=== PATIENT | female | born 1970 | race Two or more races ===

== ENCOUNTER 2024-11-18 18:07 | Emergency (ER) | payer MEDICAID, SELFPAY ==
[2024-11-18 18:17] VITALS: BP 107/67; PULSE 64; RESP 16; TEMP 36.8; O2SAT 95; BMI 30.2
--- NOTE | 2024-11-18 18:27 | XR_ITS ---
Examination: PA chest single view Technique: Upright PA chest single view Exam date and time: November 18, 2024 1836 hrs. Indications: Chest pain epigastric pain today. Findings: Normal heart size Mild increased opacity right base medially No pulmonary edema Impression: Suspicious for early pneumonia right base medially, clinical correlation advised
--- NOTE | 2024-11-18 18:27 | EKG_ITS ---
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
--- NOTE | 2024-11-18 18:27 | PD.EDRME ---
Rapid Medical Screening Exam [facility] Arrival date/time: 11/18/24 18:07 54F with no significant PMH presents to ED with 30 min of lower chest/epigastric pain and N/V. Patient denies diarrhea, dsysuria, and URI symptoms. Chief Complaint: Abdominal Pain Vital signs: Vital Signs Temperature 98.2 F 11/18/24 18:17 Pulse Rate 64 11/18/24 18:17 Respiratory Rate 16 11/18/24 18:17 Blood Pressure 107/67 11/18/24 18:17 Pulse Oximetry (%) 95 11/18/24 18:17 Oxygen Delivery Method Room Air 11/18/24 18:17
[2024-11-18 18:59] LABS: Basophils # (Auto) 0.1 Thou/mm3 (0.0-0.2); Basophils % (Auto) 1 % (0-2.5); Eosinophils # (Auto) 0.2 Thou/mm3 (0.0-0.5); Eosinophils % (Auto) 3 % (0-10); Hematocrit 44.4 % (36.0-46.0); Hemoglobin 15.1 g/dL (12.0-16.0); Immature Granulocytes % (Auto) 0 % (0-0); Immature Granulocytes Auto 0.02 Thou/mm3 (0.00-0.00); Lymphocytes % (Auto) 53 % (10-50); Mean Corpuscular Hemoglobin 30.8 pg (25.0-35.0); Mean Corpuscular Volume 91 fL (80-100); Monocytes # (Auto) 0.3 Thou/mm3 (0.0-0.8); Monocytes % (Auto) 4 % (0-12); Neutrophils % (Auto) 39 % (37-80); Nucleated Red Blood Cell % 0 /100 WBC (0); Platelet Count 273 Thou/mm3 (140-440); RDW Standard Deviation 41.7 fL (36.4-46.3); White Blood Count 7.7 Thou/mm3 (3.6-11.0)
[2024-11-18 19:17] LABS: Alanine Aminotransferase 17 U/L (10-49); Albumin, Serum 4.4 gm/dL (3.5-5.0); Albumin/Globulin Ratio 1.6 (1.2-2.2); Alkaline Phosphatase 80 U/L (46-116); Anion Gap 3 (7-16); Aspartate Amino Transferase 22 U/L (0-34); BUN/Creatinine Ratio 25 Ratio (12-20); Bilirubin,Total 0.4 mg/dL (0.3-1.2); Blood Urea Nitrogen 20 mg/dL (9-23); Calcium 9.5 mg/dL (8.3-10.6); Calcium (Corrected) 9.5 mg/dL (8.5-10.1); Carbon Dioxide 31.2 mMol/L (20.0-31.0); Chloride 108 mMol/L (98-107); Creatinine (Component) 0.8 mg/dL (0.6-1.3); Estimated Creatinine Clearance 80.3 mL/min (>60); Globulin 2.8 gm/dL (2.3-3.5); Glucose 156 mg/dL (74-106); Lipase 54 U/L (12-53); Osmolality,Calculated 288 (275-295); Potassium 4.1 mMol/L (3.4-5.1); Sodium 142 mMol/L (136-145); Total Protein 7.2 gm/dL (5.7-8.2); Troponin I < 0.002 ng/mL (0.0-0.045); eGFR > 60 See Note
[2024-11-18 19:20] LABS: Collection Type, Urine Clean Catch; RBC,Urine 0 /hpf (0-3)
[2024-11-18 19:32] LABS: Bacteria,Urine 1+; Bilirubin,Urine Negative (Negative); Blood,Urine Negative (Negative); Clarity,Urine Clear (Clear/Hazy); Color,Urine Yellow (Lt Yel-Yel); Glucose, Urine Negative (Negative); Hyaline Casts,Urine < 1 /hpf (0-1); Ketones,Urine Trace (Negative); Leukocyte Esterase,Urine Positive (Negative); Nitrite,Urine Negative (Negative); PH,Urine 6.5 (5.0-7.0); Protein,Urine 1+ (Neg - Trace); Specific Gravity,Urine 1.036 (1.001-1.035); Squamous Epithelial Cell,Urine 14 /hpf (0-5); WBC,Urine 4 /hpf (0-5)
[2024-11-18 19:40] LABS: Amphetamine/Methamp Scrn,U Negative (Negative); Barbiturate Screen,Urine Negative (Negative); Benzodiazepines Screen,Urine Negative (Negative); Benzoylecgonine Screen, Ur Negative (Negative); Fentanyl Screen,Urine Negative (Negative); Opiate Screen,Urine Negative (Negative); THC Screen,Urine Negative (Negative)
[2024-11-18] MEDS: ONDANSETRON ODT 4 MG TABRAP PO (19:45)
[2024-11-18] MEDS: FAMOTIDINE 20 MG TABLET 40 MG PO (19:46)
[2024-11-18] MEDS: MG HYD/AL HYD/SIME (Maalox Reg) SUSP 30 ML UDC PO (19:46)
[2024-11-18 20:03] VITALS: BP 106/74; PULSE 82; RESP 18; TEMP 36.6; O2SAT 99
--- NOTE | 2024-11-18 20:15 | XR_ITS ---
Examination: Abdomen sonogram, Limited Date and time of exam: November 18, 2024 at 2027 hrs. Indications: Epigastric pain nausea vomiting beginning 5 hours ago Technique: Real-time maugire scale transabdominal sonographic images of the upper abdomen obtained. Findings: 19 mm gallstone Gallbladder wall 0.3 cm no edema Common bile duct 0.5 cm Pancreatic head 2.9 cm Liver 16.1 cm no liver lesions Normal hepatopedal portal venous flow Patent IVC Impression: Cholelithiasis, negative for cholecystitis
--- NOTE | 2024-11-18 20:16 | EDNOTE_ITS ---
ED Abdominal Pain RME/HPI General Chief Complaint: Abdominal Pain Stated complaint: EPIGASTRIC PAIN, N/V Time seen by provider: 11/18/24 19:16 Arrival date/time: 11/18/24 18:07 RME / HPI RME / HPI narrative: 54-year-old female patient with no significant past medical history, came in for evaluation regarding epigastric pain. Onset of symptoms earlier today as epigastric pain sudden onset, described as crampy, severity moderate associated with nausea and vomiting. Nonbloody. Patient also complained of on and off same pain that lasted for several minutes. Denies any diarrhea fever dysuria or other complaints. No medication was taken prior travel Related Data Home Medications ?Medication ?Instructions ?Recorded ?Confirmed cephalexin 500 mg capsule 500 mg PO QDAY 12/17/1912/05 metformin 500 mg tablet 500 mg PO BID 12/17/1912/17 Previous Rx's ?Medication ?Instructions ?Recorded dicyclomine 20 mg tablet 20 mg PO TID #30 tabs ibuprofen 800 mg tablet 800 mg PO TID PRN pain #30 t abs 11/18/24 Allergies Allergy/AdvReac Type Severity Reaction Status Date / Time No Known Allergies Allergy Verified 12/18/19 12:51 Review of Systems Review of Systems Narrative Review of Systems: Review of system reviewed and within normal limits except mentioned in HPI ED Exam Narrative Physical exam: VITAL SIGNS: Reviewed. GENERAL APPEARANCE: Alert and interactive, follows commands, no acute distress, HEAD AND FACE: Non-traumatic. ENT: PERRL, pink conjunctivitis, eyelid no trauma, Mucous membrane moist. NECK: Supple, nontender, no nuchal rigidity. CHEST: No tenderness, no crepitus, no paradoxical movement, no retractions. LUNGS: Clear, well ventilated, symmetric, no rales, no wheezing, no ronchi, no stridor, good breath sounds bilaterally. HEART: Regular rate, regular rhythm, no murmur, no gallops. ABDOMEN: Soft, positive bowel sounds, nondistended, no guarding, epigastric tenderness, no rebound, no masses, RECTAL: Deferred. GENITAL: Deferred. NEUROLOGICAL: Gross motor function intact sensory function intact, Appropriate for age. MUSCULOSKELETAL: low back nontender, full range of motion. EXTREMITIES: Nontender, full range of motion. SKIN: Color pink, dry, no rash, no lacerations, no abrasions, no contusions. LYMPHATICS: Deferred. Course Quality Measures none Orders Category Date Time Status EKG (ED ONLY) *Do not use* NOW Care 11/18/24 18:27 Completed EKG (ED Only) Stat Exams 11/18/24 18:27 Draft US gall bladder Stat Exams 11/18/24 20:15 Completed XR chest 1V portable Stat Exams 11/18/24 18:27 Completed CBC Stat Lab 11/18/24 18:44 Completed Comprehensive Metabolic Panel Stat Lab 11/18/24 18:44 Completed Drug Screen,Urine Stat Lab 11/18/24 19:03 Completed Lipase Stat Lab 11/18/24 18:44 Completed Troponin I Stat Lab 11/18/24 18:44 Completed Urinalysis Stat Lab 11/18/24 19:03 Completed Famotidine [Pepcid] Med 11/18/24 18:42 Discontinued 40 mg PO X1 ONE Ketorolac Inj [Toradol Inj] Med 11/18/24 20:15 Discontinued 30 mg IM X1 ONE Ondansetron Odt [Zofran Odt] Med 11/18/24 18:27 Discontinued 4 mg PO X1 ONE mg Hyd/Al Hyd/Isa Susp [Maalox Susp] Med 11/18/24 18:42 Discontinued 30 ml PO X1 ONE Vital Signs Vital signs: Vital Signs Temperature 98.2 F 11/18/24 18:17 Pulse Rate 64 11/18/24 18:17 Respiratory Rate 16 11/18/24 18:17 Blood Pressure 107/67 11/18/24 18:17 Pulse Oximetry (%) 95 11/18/24 18:17 Oxygen Delivery Method Room Air 11/18/24 18:17 Abdominal Pain MDM MDM Narrative MDM Narrative:: 54-year-old female patient with no significant past medical history, came in for evaluation regarding epigastric pain. Onset of symptoms earlier today as epigastric pain sudden onset, described as crampy, severity moderate associated with nausea and vomiting. Nonbloody. Patient also complained of on and off same pain that lasted for several minutes. Denies any diarrhea fever dysuria or other complaints. No medication was taken prior travel Patient workup all came back unremarkable. Ultrasound of the gallbladder showed cholelithiasis with no sign of acute cholecystitis. Patient received Toradol IM with significant improvement of pain. Patient was advised to follow-up closely with PCP and for referral to general surgeon for definitive management of renal stone. Patient appears nontoxic and hemodynamically stable. Patient discharged home and instructed to follow-up with primary care provider in 24 to 48 hours. Instructed to return to the emergency department immediately if worsening of symptoms Patient data External records reviewed:: Other (specify) Clinical information provided by:: none Social determinants that could affect healthcare access:: none Patient has the following chronic illnesses:: None How is presenting disease/condition affected by chronic disease/condition?: no chronic disease Evaluation data The following diagnostics were reviewed and interpreted by me:: lab results and radiology exam(s) Lab and/or radiology exams considered but not ordered:: None Interpretation Summary: See results in [facility] Medications / Prescriptions Medications or Prescriptions considered but not ordered:: None Medication administrations:: Medication Administration History Discontinued Medications Al Hydrox/Mg Hydrox/Simethicone (Mg Hyd/Al Hyd/Isa (Maalox Reg) Susp 30 Ml Udc) 30 ml PO X1 ONE Stop: 11/18/24 18:43 Last Admin: 11/18/24 19:46 Dose: 30 ml Documented By: CVL Famotidine (Famotidine 20 Mg Tablet) 40 mg PO X1 ONE Stop: 11/18/24 18:43 Last Admin: 11/18/24 19:46 Dose: 40 mg Documented By: CVL Ketorolac Tromethamine (Ketorolac Inj 60 Mg/2 Ml Vial) 30 mg IM X1 ONE Stop: 11/18/24 20:16 Last Admin: 11/18/24 20:54 Dose: 30 mg Documented By: Ondansetron HCl (Ondansetron Odt 4 Mg Tabrap) 4 mg PO X1 ONE; Protocol Stop: 11/18/24 18:28 Last Admin: 11/18/24 19:45 Dose: 4 mg Documented By: CVL Toradol IM, Zofran, Pepcid and Maalox Consultations Consultation(s) initiated? (list below): No Consultation #1 (Physician, Specialty, Details): None Diagnosis Differential diagnosis abdominal pain: abdominal pain, pancreatitis and other (Gallstone) Most likely diagnosis given after review of the tests above:: Gallstone Admission Indicated Admission indicated?: not indicated Explain why admission is indicated or not indicated:: None Admission Request Was there a request for admission?: No Disposition Plan Disposition Plan: Discharge Discharge Attestation Discharge Attestation: The patient and all family members were given an opportunity to ask questions and understood the discharge instructions. Discharge instructions specifically effects, indications for sooner follow up or return to the emergency department, and the expected course of current diagnosis. Patient condition: Stable Discharge Plan Plan Patient Disposition: HOME (Self Care) Disposition Comment: Stable Prescriptions/Referrals Prescriptions/Med Rec: New dicyclomine 20 mg tablet 20 mg PO TID Qty: 30 0RF ibuprofen 800 mg tablet 800 mg PO TID PRN (Reason: pain) Qty: 30 0RF No Action metformin 500 mg Tablet 500 mg PO BID cephalexin 500 mg Capsule 500 mg PO QDAY Referrals: Tian Dutta MD [Primary Care Provider] - In 1 week Problem List Clinical Impression: Gallstone Patient/Caregiver Discharge Instructions Discharge Activity: activity as tolerated Education Materials: What Are Gallstones Additional Instructions: Thank you for the opportunity for serving you today. You are stable for discharged . You are advised to: Follow-up with your PCP in 1 to 2 days as your PCP to refer you to a surgeon Return to ED for worsening of symptoms Increase oral fluids Take medication as prescribed Print Language: Greenlandic Stand Alone Forms: Nancy Award Info., Patient Portal Info Letter PA/RATNA Supervising Physician PRIYANKA/RATNA Supervising Physician: MD Margarita
[2024-11-18] MEDS: KETOROLAC INJ 60 MG/2 ML VIAL 30 MG IM (20:54)
== END 2024-11-18 21:45 | disposition home or self-care (01) ==
PROVIDERS: Physician Assistant; Emergency Provider Emergency Medicine; PCP Family Medicine
DX: K80.20 Calculus of gallbladder without cholecystitis without obstruction (principal)
CPT/HCPCS: 36415; 71045; 76705; 80053; 80307; 81001; 83690; 84484; 85025; 93005; 96372; 99284; J1885; Q0162; A9270

== ENCOUNTER 2024-12-31 07:30 | Day surgery (SDC) | payer MEDICAID, SELFPAY ==
[2024-12-29 09:53] VITALS: BMI 31.1
[2024-12-29 11:11] LABS: Basophils # (Auto) 0.1 Thou/mm3 (0.0-0.2); Basophils % (Auto) 1 % (0-2.5); Eosinophils # (Auto) 0.1 Thou/mm3 (0.0-0.5); Eosinophils % (Auto) 2 % (0-10); Hematocrit 41.8 % (36.0-46.0); Hemoglobin 14.1 g/dL (12.0-16.0); Immature Granulocytes % (Auto) 0 % (0-0); Immature Granulocytes Auto 0.01 Thou/mm3 (0.00-0.00); Lymphocytes # (Auto) 2.4 Thou/mm3 (1.0-4.8); Lymphocytes % (Auto) 45 % (10-50); Mean Corpuscular HGB Conc 33.7 g/dl (31.0-37.0); Mean Corpuscular Hemoglobin 30.7 pg (25.0-35.0); Mean Corpuscular Volume 91 fL (80-100); Monocytes # (Auto) 0.3 Thou/mm3 (0.0-0.8); Monocytes % (Auto) 6 % (0-12); Neutrophils # (Auto) 2.4 Thou/mm3 (1.8-7.7); Neutrophils % (Auto) 46 % (37-80); Nucleated Red Blood Cell % 0 /100 WBC (0); Platelet Count 231 Thou/mm3 (140-440); White Blood Count 5.2 Thou/mm3 (3.6-11.0)
[2024-12-29 11:20] LABS: Alanine Aminotransferase 22 U/L (10-49); Albumin, Serum 4.6 gm/dL (3.5-5.0); Albumin/Globulin Ratio 1.6 (1.2-2.2); Alkaline Phosphatase 71 U/L (46-116); Anion Gap 7 (7-16); Aspartate Amino Transferase 23 U/L (0-34); BUN/Creatinine Ratio 19 Ratio (12-20); Bilirubin,Total 0.6 mg/dL (0.3-1.2); Blood Urea Nitrogen 13 mg/dL (9-23); Calcium 10.3 mg/dL (8.3-10.6); Calcium (Corrected) 10.3 mg/dL (8.5-10.1); Carbon Dioxide 27.9 mMol/L (20.0-31.0); Chloride 106 mMol/L (98-107); Creatinine (Component) 0.7 mg/dL (0.6-1.3); Estimated Creatinine Clearance 89.8 mL/min (>60); Globulin 2.9 gm/dL (2.3-3.5); Glucose 142 mg/dL (74-106); Osmolality,Calculated 283 (275-295); Potassium 4.6 mMol/L (3.4-5.1); Sodium 141 mMol/L (136-145); Total Protein 7.5 gm/dL (5.7-8.2); eGFR > 60 See Note
--- NOTE | 2024-12-30 14:03 | SUR.PREOP ---
Pt notified to come in at 0730 tomorrow for surgery.
[2024-12-31] VITALS (13 sets, daily range): BP systolic 92–136; BP diastolic 60–76; PULSE 45–67; RESP 12–20; TEMP 36.1–36.6; O2SAT 92–100; BMI 32.3
--- NOTE | 2024-12-31 10:06 | ESOP_ITS ---
Date of Procedure 12/31/24 Pre Op Diagnosis Symptomatic cholelithiasis Post Op Diagnosis Cholelithiasis with cholecystitis Procedure Laparoscopic cholecystectomy Findings Moderately distended gallbladder with gallstones and chronic cholecystitis Procedure Description Patient was brought into the operating room in supine position. After adm inistration of general endotracheal anesthesia abdomen was prepped and draped in standard surgical manner. A Veress needle was inserted through the umbilicus and pneumoperitoneum was obtained up to 15 mmHg. The Veress needle was then removed, a 5 mm infraumbilical incision was made and the 5mm trocar was inserted. Laparoscopic camera was placed. Under direct visualization a laparoscopic camera a 10 mm trocar was placed in subxiphoid and two 5 mm trocars placed in right upper quadrant. The gallbladder was identified and was noted to be moderately distended with gallstones and chronic cholecystitis. It was retracted cephalad and laterally. Dissection started near the infundibulum of gallbladder where cystic duct and gallbladder junction clearly identified. The cystic duct was circumferentially dissected off the peritoneum and surrounding inflammatory tissue. The critical view of safety was clearly demonstrated. Cystic duct was then divided between 2 endoclips proximally and one distally. The cystic artery was similarly dissected and divided, patient was noted to have anterior and posterior branches of cystic artery that were individually dissected and divided. The gallbladder was then from the liver bed using electrocautery. The gallbladder was then placed inside an Endo Catch and removed from the abdomen utilizing subxiphoid trocar site. The area was copi ously and thoroughly washed and irrigated, all the fluid was suctioned and the suction fluid returned clear. Hemostasis achieved using electrocautery. Endoclips noted be in place and intact without any bleeding or any leakage. Hemostasis was adequate and satisfactory. The subxiphoid trocar sites fascial defect was closed with 0 Vicryl using Endo Closure device. Instruments and trocars removed, pneumoperitoneum was evacuated and the incisions closed with 4- 0 Monocryl in subcuticular fashion. Instrument needle and sponge counts were all reported to be correct X2. Patient tolerated the procedure well, was extubated, breathing spontaneously and without difficulty and was transferred to postanesthesia care in stable condition. Anesthesia GETA and local Pathology / specimen Other (Gallbladder and contents) Estimated Blood Loss 10 Condition Stable Disposition PACU Surgeon Radha Holden MD Surgical Staff Operation Date: 12/31/24 09:45 Case Staff BAG MACHINE TENDER: Conrad Chisholm RNdirector critical care: Madelyn Lima
[2024-12-31] MEDS: fentaNYL CIT INJ 50 mCg/ML AMP 2ML IV ×2 (10:17→10:26)
--- NOTE | 2024-12-31 10:17 | SUR.PHASEI ---
1017: Pt. AAOx4, vitals stable, breathing unlabored, complaint of pain, no complaint of nausea, x4 dermabond sites to ABD CDI, no active bleed noted, report received from Shaji FALK and CASEY Martines.
--- NOTE | 2024-12-31 12:00 | SUR.PHASEI ---
1200: Kept pt. in phase 1 for so long due to her being super lethargic, bradycardic, and having discomfort. Report given to Isabel FALK to resume care of pt. Dressing to ABD CDI, no active bleed.
--- NOTE | 2024-12-31 12:20 | SUR.PHASEII ---
pt discharged with all belongings via wheelchair.. vss. dermabond remains cdi x4. breathing even and unlabored. pt drinking 7 up, burping and states pain relief from gas. dc instructions gone over wit pt and son. both verbalize understanding. signed by son.
--- NOTE | 2024-12-31 12:20 | SUR.PHASEII ---
report from nurse nargis. pt preparing for discharge. . vss. dermabond cdi x4. breathing even and unlabored. denies pain and nausea. states gas relief from 7 up. pt burping. family called to bedside.
== END 2024-12-31 12:20 | disposition home or self-care (01) ==
PROVIDERS: PCP Family Medicine; Referring Provider Surgery; Visit Provider Surgery
PROC: 0FT44ZZ Resection of Gallbladder, Percutaneous Endoscopic Approach (ICD-10-PCS; CPT 47562; principal; 2024-12-31 10:00)
DX: K80.10 Calculus of gallbladder with chronic cholecystitis without obstruction (principal)
CPT/HCPCS: 47562; 36415; 80053; 84703; 85025; A4217; A4649; J0131; J0694; J1100; J2405; J2704; J3010; J3490

== ENCOUNTER 2025-01-21 15:07 | Emergency (ER) | payer MEDICAID, SELFPAY ==
[2025-01-21 16:04] VITALS: BP 108/70; PULSE 69; RESP 18; TEMP 37.1; O2SAT 99
--- NOTE | 2025-01-21 16:28 | EDNOTE_ITS ---
ED Wound/Laceration-RME/HPI General Chief Complaint: Wound Recheck / Suture Removal Stated Complaint: [id number]/27/25; WHITE SPOTS ON INCISION Time Seen by Provider: 01/21/25 16:12 Source: patient Arrival date/time: 01/21/25 15:07 A 54-year-old female presents to the ED with complaints of irritation and redness at one of her surgical incision sites. She underwent a laparoscopic cholecystectomy two weeks ago. She reports that all other incision sites have healed appropriately; however, the upper mid-abdominal incision has developed a small bump accompanied by mild redness. She denies fever, purulent discharge, or systemic symptoms. Mode of arrival: ambulatory Limitations: no limitations Related Data Previous Rx's ?Medication ?Instructions ?Recorded docusate sodium 100 mg capsule 100 mg PO BID #30 caps 12/31/24 (Colace) hydrocodone 5 mg-acetaminophen 325 1 tab PO Q6H PRN pa in (scale score 12/31/24 mg tablet 7-10) #15 tabs ibuprofen 600 mg tablet 600 mg PO Q8H PRN pain (scal e 12/31/24 score 4-6) #15 tabs mupirocin 2 % topical ointment 1 applic topical BID 7 days #22 01/21/25 grams sulfamethoxazole 800 1 tab PO BID 7 days #14 tabs 01/21/25 mg-trimethoprim 160 mg tablet (Bactrim DS) Allergies Allergy/AdvReac Type Severity Reaction Status Date / Time No Known Allergies Allergy Verified 01/21/25 15:11 Review of Systems Review of Systems Systems Reviewed: All systems reviewed, normal except as documented Narrative Review of Systems: Gen: No fever, no chills, no weight loss EYES: No discharge, no visual changes, no pain HEENT: No ear pain, no congestion, no sore throat PULM: No shortness of breath, no cough, no congestion CV: No chest pain, no dyspnea on exertion, no palpitations GI: No nausea, no vomiting, no diarrhea, no pain, no constipation : No frequency, no urgency,? no dysuria Musc/skel: No joint pain, no back pain Skin: +erythemic, surgical site Psyc: No hallucinations, no depression Heme/Lymph: No easy bleeding or bruising tendencies Neuro: No weakness, no headache ED Exam General Limitations: Present no limitations General appearance: Present alert and in no apparent distress Head Head exam: Present atraumatic Eye Eye exam: Present normal appearance, PERRL and EOMI ENT ENT exam: Present normal exam, normal oropharynx and mucous membranes moist Neck Neck exam: Present normal inspection, full ROM and trachea midline Chest Chest inspection: Present normal inspection and symmetric chest wall rise Respiratory Respiratory exam: Present normal lung sounds bilaterally Cardiovascular Cardiovascular exam: Present regular rate, normal rhythm and normal heart sounds Abdominal Exam Abdominal exam: Present soft, normal bowel sounds and other (Noted 3 surgical healing sites. And abdomen wall. She does have a small 2 cm surgical site in the upper mid abdominal wall that appears to have a seroma and mild erythema. No abscess formation..); Absent distention, tenderness, guarding, rebound or rigidity Extremities Exam Extremities exam: Present normal inspection and full ROM Back Exam Back exam: Present normal inspection and full ROM Neurological Exam Neurological exam: Present alert, oriented X3 and CN II-XII intact Psychiatric Psychiatric exam: Present normal affect and normal mood Skin Skin exam: Present warm, dry, intact and normal color Course Quality Measures none Vital Signs Vital signs: Vital Signs Temperature 98.7 F 01/21/25 16:04 Pulse Rate 69 01/21/25 16:04 Respiratory Rate 18 01/21/25 16:04 Blood Pressure 108/70 01/21/25 16:04 Pulse Oximetry (%) 99 01/21/25 16:04 Oxygen Delivery Method Room Air 01/21/25 16:04 Wound / Laceration MDM Narrative MDM Narrative:: Patient has a small area of concern in the upper surgical mid scar possible seroma. Patient does not have any pain no fever no chills. Advised we will s tart her on empiric antibiotics and topical antibiotic. Advised that she will have a follow-up appointment with her PCP who called to follow-up. Advised to return if there is any worsening symptoms despite the use of antibiotics. Patient data External records reviewed:: [facility] previous records Clinical information provided by:: patient Social determinants that could affect healthcare access:: none Patient has the following chronic illnesses:: Recent cholecystectomy How is presenting disease/condition affected by chronic disease/condition?: no chronic disease Evaluation data The following diagnostics were reviewed and interpreted by me:: other (specify) Lab and/or radiology exams considered but not ordered:: None Interpretation Summary: not applicable Medications / Prescriptions Medications or Prescriptions considered but not ordered:: No Medication administrations:: No Consultations Consultation(s) initiated? (list below): No Diagnosis Wound Differential Diagnosis: laceration, abrasion, avulsion of skin and other Most likely diagnosis given after review of the tests above:: Postsurgical seroma less likely infection Admission Indicated Admission indicated?: not indicated Admission Request Was there a request for admission?: No Disposition Plan Disposition Plan: Discharge Discharge Attestation Discharge Attestation: The patient and all family members were given an opportunity to ask questions and understood the discharge instructions. Discharge instructions specifically effects, indications for sooner follow up or return to the emergency department, and the expected course of current diagnosis. Patient condition: Stable Discharge Plan Plan Patient Disposition: HOME (Self Care) Patient condition on transfer: Stable Prescriptions/Referrals Prescriptions/Med Rec: New sulfamethoxazole-trimethoprim [Bactrim DS] 800-160 mg tablet 1 tab PO BID 7 Days Qty: 14 0RF mupirocin 2 % ointment 1 applic topical BID 7 Days Qty: 22 0RF No Action docusate sodium [Colace] 100 mg capsule 100 mg PO BID Qty: 30 0RF ibuprofen 600 mg tablet 600 mg PO Q8H PRN (Reason: pain (scale score 4-6)) Qty: 15 0RF hydrocodone-acetaminophen 5-325 mg tablet 1 tab PO Q6H MDD 4 PRN (Reason: pain (scale score 7-10)) Qty: 15 0RF Problem List Clinical Impression: Abdominal wall cellulitis Patient/Caregiver Discharge Instructions Discharge Activity: activity as tolerated Education Materials: ED Cellulitis Additional Instructions: - Please start antibiotic as directed. Please apply topical ointment as directed Please follow-up with your primary doctor or surgeon for follow-up care. As discussed if no improvement within 2 to 3 days after antibiotic please return to the emergency department for further evaluation labs or CT scan. Print Language: Qatari Stand Alone Forms: Nancy Award Info., Patient Portal Info Letter PA/RATNA Supervising Physician PRIYANKA/RATNA Supervising Physician: Dr Orourke
== END 2025-01-21 17:38 | disposition home or self-care (01) ==
LOC: SERX 16:31
PROVIDERS: Emergency Provider Emergency Medicine
DX: L03.311 Cellulitis of abdominal wall (principal)
CPT/HCPCS: 99281

== ENCOUNTER → 2025-08-27 | Outpatient (CLI) | payer MEDICAID, SELFPAY ==
--- NOTE | 2025-08-27 12:00 | XR_ITS ---
MRI shoulder, right, without contrast. Date and time: August 27, 2025, 12:24 p.m., comparison June 02, 2019 INDICATIONS: Right shoulder pain postsurgical repair 2019 Technique: Multiple axial, sagittal and coronal sections of the shoulder have been obtained. Siemens high-resolution 1.5 Linda MRI scanner is utilized. Axial fat-suppressed sections, TR 2350, TE 18 T2-weighted coronal fat-saturated images, TR 3500, TE 7100 T1-weighted coronal images, TR 500, TE 15 T2-weighted sagittal fat-saturated images, TR 3500, TE 57 T1-weighted sagittal sections, TR 504, TE 13. Findings: Large, 4 cm, full-thickness rotator cuff tear. Subscapularis insertion is intact. Subscapularis bursa is small. Long head of the biceps is in the bicipital groove. No definite tear of the biceps superior labral anchor is seen. Retraction of the musculotendinous junction of the rotator cuff is prominent. Distance between the acromium and humeral head is 1.5 mm Atrophy of the supraspinatus muscle is severe. Atrophy of the infraspinatus muscle is moderate. Sagittal sections demonstrate a horizontal acromion. Acromioclavicular joint demonstrates mild osteoarthritis . Osacromiale is not identified. Anterior superior labral tears. Bony glenoid fossa on the sagittal sections does not demonstrate osseous defect. Occult fracture or area of avascular necrosis is not seen. Acromioclavicular joint separation is not visible. Defect in the posterolateral margin of the humeral head is not seen Impression: Large full-thickness rotator cuff tear Anterior superior labral tears
== END | disposition home or self-care (01) ==
PROVIDERS: PCP Family Medicine; Referring Provider Orthopaedic Surgery; Visit Provider Orthopaedic Surgery
DX: M75.101 Unspecified rotator cuff tear or rupture of right shoulder, not specified as traumatic (principal); S43.431A Superior glenoid labrum lesion of right shoulder, initial encounter; X58.XXXA Exposure to other specified factors, initial encounter
CPT/HCPCS: 73221